=== PATIENT | male | born 1965 | race Two or more races ===

== ENCOUNTER 2023-03-02 13:00 | Day surgery (SDC) | payer OTHER ==
[~2023-03-02] VITALS: Ht 172.7 cm; Wt 78.5 kg
[2023-03-02 13:01] VITALS: RESP 11; TEMP 98; O2SAT 94
[2023-03-02] MEDS ORDERED: HYDROmorphone HCL 2 MG/ML VL/or syr IV PRN (13:15)
[2023-03-02] MEDS ORDERED: ONDANSETRON HCL 4 MG/2 ML VIAL IV PRN (13:15)
[2023-03-02] MEDS ORDERED: MEPERIDINE HCL (25 MG/ML) 1ML VIAL IV PRN (13:15)
[2023-03-02 13:30] VITALS: BP 124/75; PULSE 55; RESP 13; O2SAT 96
== END 2023-03-02 14:16 | disposition home or self-care (01) ==
LOC: GI 13:00
PROVIDERS: ATTEND Internal Medicine Gastroenterology
DX: R19.4 Change in bowel habit (principal); K64.0 First degree hemorrhoids
CPT/HCPCS: 45378; J7030